=== PATIENT | male | born 1980 | race Caucasian/White ===

== ENCOUNTER 2024-12-22 10:49 | Day surgery (SDC) | payer OTHER ==
[~2024-12-22] VITALS: Ht 180.3 cm; Wt 85.6 kg
[~2024-12-22 10:49] MED LIST: ROSU20TA86 PO
[2024-12-22] MEDS: LR 1,000 ML IV SCH (11:10)
[2024-12-22] MEDS ORDERED: dexAMETHasone 4 MG/ML 1 ML VIAL As Ordered ONE (11:54)
[2024-12-22] MEDS ORDERED: LIDOCAINE 2% 100 MG/5 ML SDV (FOR ANES.) As Ordered ONE (11:54)
[2024-12-22] MEDS ORDERED: ONDANSETRON 4MG/2ML VIAL As Ordered ONE (11:54)
[2024-12-22] MEDS ORDERED: KETOROLAC 30 MG/ML 1 ML VIAL As Ordered ONE (11:54)
[2024-12-22] MEDS ORDERED: MIDAZOLAM INJ 2 MG/2 ML VIAL As Ordered ONE (11:54)
[2024-12-22] MEDS: TRANEXAMIC ACID 100 MG/ML 10ML VIAL As Ordered ONE (12:49)
[2024-12-22] MEDS: ceFAZolin SOD 2 GM IV ONCE IV ONE (13:15)
[2024-12-22] MEDS: TRANEXAMIC ACID 100 MG/ML 10ML VIAL IV ONE (13:20)
[2024-12-22] MEDS ORDERED: dexmedeTOMIDine (4 MCG/ML) 200 MCG/50 ML BTL As Ordered ONE (13:27)
[2024-12-22] MEDS ORDERED: HYDROmorphone HCL 2 MG/ML 1 ML VIAL As Ordered ONE (13:45)
[2024-12-22] MEDS ORDERED: ACETAMINOPHEN 1000MG/100ML IV BAG As Ordered ONE (13:50)
[2024-12-22] MEDS: EPINEPHrine 1 MG/ML INJ 30 ML MD-VIAL As Ordered ONE (13:57)
[2024-12-22] MEDS ORDERED: ONDANSETRON 4MG/2ML VIAL IV PRN (14:05)
[2024-12-22] MEDS ORDERED: MEPERIDINE 25 MG/ML 1 ML VIAL IV PRN (14:05)
[2024-12-22 16:09] VITALS: BP 119/68; TEMP 97.7; O2SAT 100
== END 2024-12-22 16:16 | disposition home or self-care (01) ==
LOC: M SDC 10:49
PROVIDERS: ATTEND Orthopaedic Surgery
DX: S83.232A Complex tear of medial meniscus, current injury, left knee, initial encounter (principal); M94.262 Chondromalacia, left knee; X58.XXXA Exposure to other specified factors, initial encounter; Y93.9 Activity, unspecified; Y92.9 Unspecified place or not applicable; E78.00 Pure hypercholesterolemia, unspecified; Z79.899 Other long term (current) drug therapy
CPT/HCPCS: 29881; J0131; J0165; J0665; J0688; J1100; J1171; J1885; J2250; J2405; J3010